=== PATIENT | male | born 1935 | race Caucasian/White ===

== ENCOUNTER → 2016-08-30 | Day surgery (SDC) | payer MEDICARE, BC ==
[~2016-08-30] MED LIST: ALDACTONE25 MG PO; ALEVE220 M1 PO; AMIODARONE HCL100 MG PO; ANTIBOTIC; ASPIRIN PO; ASPIRIN81 M2 PO; ATORVASTATIN CA10 MG PO; BENZONATATE PO; BRILINTA90 MG PO; CENTRUM SILVER1 EACH PO; CERTAGEN PO; CLOPIDOGREL75 MG PO; COLACE PO; COREG6.25 M1 PO; FINASTERIDE5 MG PO; FLOMAX0.4 M1 PO; FUROSEMIDE40 MG PO; K-DUR20 ME2 PO; LIPITOR PO; LISINOPRIL PO; LORTAB 7.5-5001 TAB PO; METFORMIN HCL500 M1 PO; MIRALAX17 G2 PO; NITROGLYGERIN0.4 MG SL; NORVASC PO
--- NOTE | ~2016-08-30 | OR ---
Unit #: [id number] #: [id number] Patient: JUAN LI [id number] [address] [id number] [id number] MR#: [id number] NAME: JUAN LI ROOM: Date of Procedure: 08/30/2016 Admission Date: 08/30/2016 Surgeon: Juan Pederson M.D. : 1935 Attending Physician: Juan Pederson M.D. Primary Care Physician: John Brumfield M.D. OPERATIVE REPORT PREOPERATIVE DIAGNOSES 1. History of colonic polyps. 2. Abnormal CT scan of the rectum. POSTOPERATIVE DIAGNOSES 1. Irregularity of mucosa with possible sessile polyp at 60 cm descending colon. 2. Rectal polyp at the anal verge. PROCEDURES PERFORMED 1. Colonoscopy to cecum. 2. Multiple biopsies of irregularity 60 cm descending colon. 3. Cold biopsy excision of rectal polyp. 4. Methylene blue tattooing of submucosal irregularity at 60 cm. ANESTHESIA IV sedation. COMPLICATIONS None. INDICATIONS FOR PROCEDURE The patient is an 80-year-old, who presents with a history of polyps as well as an irregularity on a CT scan. He presents for endoscopic evaluation. DESCRIPTION OF PROCEDURE The patient was taken to the operating theater and placed in the left lateral decubitus position. IV sedation was initiated. Digital rectal exam was normal. Colonoscope was then passed under direct vision and navigated to the cecum. The patient had excellent prep. I identified an irregularity that appeared to be an irregular sessile polyp at approximately 60 cm what would now be the descending colon secondary to a previous sigmoid resection. Multiple biopsies were obtained. Hemostasis was adequate. I then tattooed this with methylene blue 2 cm in the submucosa right at the lesion. I then identified a 0.2 cm polyp 1 cm above the anal verge. This was excised with cold biopsy. Hemostasis was adequate. The patient tolerated the procedure well and sent to the recovery room in good condition. PLAN We will follow up on biopsies outpatient. Unit #: [id number] #: [id number] Patient: JUAN LI Dictated by... Paul Zheng/katlin TD: 08/31/2016 02:33 JOB #: [id number] OPERATIVE REPORT Page 1 of 1 X Juan Pederson MD PROCEDURE OPERATIVE NOTE
== END | disposition home or self-care (01) ==
LOC: COPS 08-27 12:00
DX: D12.4 Benign neoplasm of descending colon (principal); D12.8 Benign neoplasm of rectum; I11.0 Hypertensive heart disease with heart failure; I50.9 Heart failure, unspecified; I25.10 Atherosclerotic heart disease of native coronary artery without angina pectoris; E11.9 Type 2 diabetes mellitus without complications; E78.5 Hyperlipidemia, unspecified; E78.00 Pure hypercholesterolemia, unspecified; K59.09 Other constipation; M19.90 Unspecified osteoarthritis, unspecified site; N40.1 Benign prostatic hyperplasia with lower urinary tract symptoms; R35.0 Frequency of micturition; Z86.010 Personal history of colon polyps; Z87.01 Personal history of pneumonia (recurrent); Z79.82 Long term (current) use of aspirin; Z79.02 Long term (current) use of antithrombotics/antiplatelets; Z98.41 Cataract extraction status, right eye; Z79.899 Other long term (current) drug therapy; Z98.42 Cataract extraction status, left eye; Z90.49 Acquired absence of other specified parts of digestive tract; Z89.022 Acquired absence of left finger(s); Z95.5 Presence of coronary angioplasty implant and graft; Z98.890 Other specified postprocedural states
CPT/HCPCS: 82947; 88305